=== PATIENT | female | born 1945 | race Caucasian/White ===

== ENCOUNTER → 2017-10-10 10:24 | Outpatient (CLI) | payer MEDICARE, OTHER, SELFPAY ==
--- NOTE | 2017-10-10 10:24 | DT_ITS ---
This patient was seen during an EMR downtime October 03, 2017 - October 10, 2017. This patient may have a combination of paper and electronic documentation or all paper documentation. All documentation is viewable within the e-chart portion of [facility] for each patient visit.
--- NOTE | 2017-10-10 10:26 | BI_ITS ---
MAMMOGRAPHY - BILATERAL SCREENING REASON FOR EXAM: Female, 72 years old. Routine annual screening examination. PERTINENT HISTORY: Aunt with breast cancer. TECHNIQUE: Digital bilateral breast liza (3D mammographic acquisition) in the CC and MLO projections. 2-D mediolateral oblique (MLO) and craniocaudad (CC) views of both breasts were obtained. CAD: Full Field Digital Mammography with Computer Added Detection was performed. COMPARISON: Comparison is made with prior study dated October 06, 2016 and October 06, 2015. FINDINGS: Breast Composition: The breasts are almost entirely fatty. There are no dominant masses or suspicious calcifications. Stable small benign-appearing bilateral axillary lymph nodes. No other significant abnormalities are identified. There has been no significant change since the prior study. BI/SCREENING MAMM (CAD), BILAT IMPRESSION: Stable bilateral screening mammogram. Yearly follow-up mammogram recommended. (A) ASSESSMENT CATEGORY: BIRADS Category 2: Benign. A letter regarding these results will be sent to the patient by the facility within 30 days. Approximately 10% of breast cancers are not detected by mammography. A normal mammogram should not delay biopsy of a clinically suspicious abnormality. [id number] Electronically Signed: Isauro De La Rosa MD at 14:00 EDT Tel [phone], Service support ,
== END ==
PROVIDERS: Family Provider Family Medicine; PCP Family Medicine; Visit Provider Obstetrics & Gynecology
DX: Z12.31 Encounter for screening mammogram for malignant neoplasm of breast (principal)
CPT/HCPCS: 77063; 77067

== ENCOUNTER → 2018-10-13 11:53 | Outpatient (CLI) | payer MEDICARE, OTHER, SELFPAY ==
--- NOTE | 2018-10-13 11:57 | BI_ITS ---
MAMMOGRAPHY - BILATERAL SCREENING REASON FOR EXAM: Female, 73 years old. Routine annual screening examination. PERTINENT HISTORY: Aunt with breast cancer. TECHNIQUE: Digital bilateral breast aries (3D mammographic acquisition) in the CC and MLO projections. 2-D mediolateral oblique (MLO) and craniocaudad (CC) views of both breasts were obtained. CAD: Full Field Digital Mammography with Computer Added Detection was performed. COMPARISON: Comparison is made with prior study dated October 10, 2017 and October 06, 2016. FINDINGS: Breast Composition: The breasts are almost entirely fatty. There are no dominant masses or suspicious calcifications. Stable small bilateral benign-appearing axillary lymph nodes. No other significant abnormalities are identified. There has been no significant change since the prior study. BI/SCREEN MAMM (CAD) W/ARIES BILAT IMPRESSION: Stable bilateral screening mammogram. Yearly follow-up mammogram recommended. (A) ASSESSMENT CATEGORY: BIRADS Category 2: Benign. A letter regarding these results will be sent to the patient by the facility within 30 days. Approximately 10% of breast cancers are not detected by mammography. A normal mammogram should not delay biopsy of a clinically suspicious abnormality. [id number] Electronically Signed: Isauro De La Rosa, at 13:24 EDT , Service support ,
== END ==
PROVIDERS: Family Provider Family Medicine; PCP Family Medicine; Referring Provider Obstetrics & Gynecology; Visit Provider Obstetrics & Gynecology
DX: Z12.31 Encounter for screening mammogram for malignant neoplasm of breast (principal)
CPT/HCPCS: 77063; 77067

== ENCOUNTER → 2019-10-15 10:30 | Outpatient (CLI) | payer MEDICARE, OTHER, SELFPAY ==
--- NOTE | 2019-10-15 10:35 | BI_ITS ---
MAMMOGRAPHY - BILATERAL SCREENING REASON FOR EXAM: Female, 74 years old. Routine annual screening examination. PERTINENT HISTORY: Aunt with breast cancer. TECHNIQUE: Digital bilateral breast aries (3D mammographic acquisition) in the CC and MLO projections. 2-D mediolateral oblique (MLO) and craniocaudad (CC) views of both breasts were obtained. CAD: Full Field Digital Mammography with Computer Added Detection was performed. COMPARISON: Comparison is made with prior examination dated October 13, 2018 and October 10, 2017. FINDINGS: Breast Composition: The breasts are almost entirely fatty. There are no dominant masses or suspicious calcifications. Stable benign-appearing small bilateral axillary lymph nodes. No other significant abnormalities are identified. There has been no significant change since the prior study. BI/SCREEN MAMM (CAD) W/ARIES BILAT IMPRESSION: Stable bilateral screening mammogram. Yearly follow-up mammogram recommended. (A) ASSESSMENT CATEGORY: BIRADS Category 2: Benign. A letter regarding these results will be sent to the patient by the facility within 30 days. Approximately 10% of breast cancers are not detected by mammography. A normal mammogram should not delay biopsy of a clinically suspicious abnormality. [id number] Electronically Signed: Isauro De La Rosa, at 12:25 EDT , Service support ,
== END ==
PROVIDERS: PCP Family Medicine; Referring Provider Obstetrics & Gynecology; Visit Provider Obstetrics & Gynecology
DX: Z12.31 Encounter for screening mammogram for malignant neoplasm of breast (principal); Z80.3 Family history of malignant neoplasm of breast
CPT/HCPCS: 77063; 77067

== ENCOUNTER → 2020-10-21 10:07 | Outpatient (CLI) | payer MEDICARE, OTHER, SELFPAY ==
--- NOTE | 2020-10-21 10:10 | BI_ITS ---
MAMMOGRAPHY - BILATERAL SCREENING 3-D TOMOSYNTHESIS REASON FOR EXAM: Female, 75 years old. SCREENING PERTINENT HISTORY: No significant family history. TECHNIQUE: 2-D mammograms and 3-D Tomosynthesis of the breast (s) were performed. CAD was performed. COMPARISON: 10/15/2019. FINDINGS: The breast composition is of scattered fibroglandular tissue. Scattered benign calcifications are seen particularly in the right breast. No dense spiculated masses or suspicious microcalcifications are identified. No architectural distortion is identified. There is no skin thickening or retraction. Tiny intrapulmonary lymph node seen in both breasts There has been no significant change since the prior study of 10/15/2019. BI/SCRN MAMM (CAD)W/ARIES BILAT IMPRESSION: No mammographic signs of malignancy. Routine yearly mammograms recommended. ASSESSMENT CATEGORY: BIRADS Category 1: Negative. A letter regarding these results will be sent to the patient by the facility within 30 days. FOLLOW UP RECOMMENDATION: Yearly follow up mammogram recommended. (A) Approximately 10% of breast cancers are not detected by mammography. A normal mammogram should not delay biopsy of a clinically suspicious abnormality. Electronically Signed: Ankita Camarena, at 13:43 EDT Tel , Service support ,
== END ==
PROVIDERS: PCP Nurse Practitioner Family; Referring Provider Student in an Organized Health Care Education/Training Program; Visit Provider Student in an Organized Health Care Education/Training Program
DX: Z12.31 Encounter for screening mammogram for malignant neoplasm of breast (principal)
CPT/HCPCS: 77063; 77067

== ENCOUNTER → 2022-01-13 | Outpatient (CLI) | payer MEDICARE, OTHER, SELFPAY ==
--- NOTE | 2022-01-13 11:26 | BI_ITS ---
MAMMOGRAPHY - BILATERAL SCREENING REASON FOR EXAM: Female, 76 years old. Routine annual screening examination. PERTINENT HISTORY: Aunt with breast cancer. TECHNIQUE: Digital bilateral breast aries (3D mammographic acquisition) in the CC and MLO projections. 2-D mediolateral oblique (MLO) and craniocaudad (CC) views of both breasts were obtained. CAD: Full Field Digital Mammography with Computer Added Detection was performed. COMPARISON: Comparison is made with prior study dated 10/21/2020 and 10/15/2019. FINDINGS: Breast Composition: There are scattered areas of fibroglandular density. There are no dominant masses or suspicious calcifications. Stable small benign-appearing bilateral axillary lymph nodes. No other significant abnormalities are identified. There has been no significant change since the prior study. BI/SCRN MAMM (CAD)W/ARIES BILAT IMPRESSION: Stable bilateral screening mammogram. Yearly follow-up mammogram recommended. (A) ASSESSMENT CATEGORY: BIRADS Category 2: Benign. A letter regarding these results will be sent to the patient by the facility within 30 days. Approximately 10% of breast cancers are not detected by mammography. A normal mammogram should not delay biopsy of a clinically suspicious abnormality. [id number] Electronically Signed: Isauro De La Rosa MD at 12:21 EDT ,
--- NOTE | 2022-01-13 11:32 | BD_ITS ---
STUDY: DUAL ENERGY X-RAY ABSORPTIOMETRY / DXA REASON FOR EXAM: Female, 76 years old. V76.12ScreeningBONE DENSITY REASON FOR EXAM TECHNIQUE: Bone Mineral Density (BMD) measurements of lumbar spine and right hip were obtained. COMPARISON: Comparison is made with prior study dated 09/19/2012. FINDINGS: Lumbar Spine (L1-L4): g/cm2 (1.123) / T-score (0.7) / Z-score (3.2) Findings are suggestive of normal bone density with a low fracture risk. Right Femur Total: g/cm2 (0.782) / T-score (-1.3) / Z-score (0.6) Right Femoral Neck: g/cm2 (0.656) / T-score (-1.7) / Z-score (0.4) The T-Scores on the most recent prior examination were: Lumbar Spine (L1-L4): There has been improvement of bone density since the previous examination. Right Femur Total: which represents a worsening of 16.7%. BD/Dexa Bone Density Study IMPRESSION: The patient is considered osteopenic as outlined below according to World Bam Organization (WHO) criteria with a moderate fracture risk. There has been worsening of bone density since the previous examination. Reference Information: The T-score is the number of standard deviations above or below the standard which is normal for young adults at their peak bone mineral density. The World Health Organization (WHO) interprets the T-scores as follows: Above -1 Normal bone density Between -1 and -2.5 Osteopenia Equal to / or below -2.5 Osteoporosis As a practical clinical guideline, osteopenia may be graded as follows: Mild -1 through -1.5 Moderate -1.6 through -2.0 Severe -2.1 through -2.4 The Z-score is the number of standard deviations above or below age-matched controls. A Z-score of less than -1.5 would be considered abnormal. References: 1. NIH Osteoporosis and Related Bone Diseases www osteo.org 2. International Society for Clinical Densitometry www iscd.org 3. National Osteoporosis Foundation www nof.org Electronically Signed: Isauro De La Rosa MD at 13:42 EDT ,
== END | disposition home or self-care (01) ==
LOC: OPBD 11:23
PROVIDERS: PCP Internal Medicine; Referring Provider Student in an Organized Health Care Education/Training Program; Visit Provider Student in an Organized Health Care Education/Training Program
DX: Z13.820 Encounter for screening for osteoporosis (principal); Z78.0 Asymptomatic menopausal state; Z12.31 Encounter for screening mammogram for malignant neoplasm of breast; Z80.3 Family history of malignant neoplasm of breast
CPT/HCPCS: 77063; 77067; 77080

== ENCOUNTER → 2024-02-02 | Outpatient (CLI) | payer MEDICARE, OTHER, SELFPAY ==
--- NOTE | 2024-02-02 13:30 | BI_ITS ---
MAMMOGRAPHY - BILATERAL SCREENING 3-D TOMOSYNTHESIS REASON FOR EXAM: Female, 78 years old. SCREENING PERTINENT HISTORY: No significant family history. TECHNIQUE: 2-D mammograms and 3-D Tomosynthesis of the breast (s) were performed. CAD was performed. COMPARISON: 01/13/2022 FINDINGS: The breast composition is composed of scattered fibroglandular density. Scattered benign calcifications are seen. No dense spiculated masses or suspicious microcalcifications are identified. No architectural distortion is identified. There is no skin thickening or retraction. There has been no significant change since the prior study. BI/SCRN MAMM (CAD)W/ARIES BILAT IMPRESSION: No mammographic signs of malignancy. Routine yearly mammograms recommended. ASSESSMENT CATEGORY: BIRADS Category 1: Negative. A letter regarding these results will be sent to the patient by the facility within 30 days. FOLLOW UP RECOMMENDATION: Yearly follow up mammogram recommended. (A) Approximately 10% of breast cancers are not detected by mammography. A normal mammogram should not delay biopsy of a clinically suspicious abnormality. Electronically Signed: Bob Garsia MD at 13:51 EDT ,
== END | disposition home or self-care (01) ==
LOC: OPBI 13:27
PROVIDERS: PCP Internal Medicine; Referring Provider Clinical Nurse Specialist; Visit Provider Clinical Nurse Specialist
DX: Z12.31 Encounter for screening mammogram for malignant neoplasm of breast (principal)
CPT/HCPCS: 77063; 77067

== ENCOUNTER 2024-12-03 16:30 | Emergency (ER) | payer MEDICARE, OTHER, SELFPAY ==
[2024-12-03 16:33] VITALS: BP 147/57; PULSE 71; RESP 16; TEMP 36.7; O2SAT 97
[2024-12-03 17:17] VITALS: BMI 30.4
--- NOTE | 2024-12-03 17:32 | CT_ITS ---
EXAM: CT BRAIN/HEAD WITHOUT CONTRAST; CT SPINE CERVICAL WITHOUT CONTRAST CLINICAL HISTORY: INJURY/PAIN COMPARISON: None. TECHNIQUE: Noncontrast CT images of the head and cervical spine with multiplanar reconstructions. Dose reduction techniques were used including intermediate exposure control (AEC),iterative reconstruction technique, and/or mA and/or KV dose adjustments based on patient's size. FINDINGS: HEAD: No acute intracranial hemorrhage, extra-axial collection, mass effect or evidence of acute infarct. Mild age-appropriate generalized brain parenchymal volume loss and chronic microangiopathic changes. Absent [place] ocular lenses. Mild posterior right parietal scalp contusion/hematoma with laceration and small amount of scattered subcutaneous gas. No acute skull base or calvarial fracture. Well-aerated visualized paranasal sinuses and bilateral mastoid air cells. CERVICAL SPINE: No acute fracture or subluxation. Positional and/or degenerative straightening of the cervical lordosis. Slight grade 1 degenerative anterolisthesis of C4 on C5. Multilevel spondylotic changes with varying degrees of disc space narrowing, endplate sclerosis with multiple small degenerative Schmorl's nodes and/or subchondral cysts, anterior osteophytosis, uncovertebral spurring and hypertrophic facet arthropathy. No prevertebral soft tissue swelling/edema. Atherosclerotic vascular calcifications. Retropharyngeal course of bilateral carotid arteries noted. Sternotomy wires. Clear lung apices. Heterogeneous hypodense nodular lesion mildly expanding the left lobe of the thyroid gland. CT/Spine Cervical without Contras IMPRESSION: 1. No acute intracranial abnormality. 2. Mild right parietal scalp contusion/hematoma and laceration. No calvarial fr acture. 3. No acute cervical spine fracture or traumatic malalignment. Degenerative yadiel nges as above. 4. Hypodense nodular lesion within the left thyroid gland; may be further asses sed with ultrasound. Reading Location: [id number]
--- NOTE | 2024-12-03 17:45 | RAD_ITS ---
PROCEDURE: PELVIS 1 OR 2 VIEWS 12/03/2024 REASON FOR EXAM: INJURY/PAIN TECHNIQUE: PELVIS 1 OR 2 VIEWS COMPARISON: None. FINDINGS: No evidence of acute fracture or dislocation. Partially imaged left hip arthroplasty, with intact hardware. Mild degenerative arthrosis of the right hip joint. Degenerative changes of the lower lumbosacral spine. Qualitative osteopenia. Atherosclerotic vascular calcifications. RAD/Pelvis 1 or 2 Views IMPRESSION: No evidence of acute fracture or dislocation. Partially imaged left hip arthroplasty appears intact. Reading Location: [id number]
[2024-12-03] MEDS: Lidocaine 1% (20 ml mdv) 20 ML Vial INFILT (17:52)
--- NOTE | 2024-12-03 18:16 | EX.ED.GENINJ ---
HPI History of Present Illness Chief Complaint: Fall Detail of Chief Complaint: Fell backwards due to mechanical fall Informant: patient Onset/Context/Timing Onset: Today and Hours Mechanism/Context: Fall Location of pain/injuries: - (Occiput and left ischial tuberosity) Quality of Pain: Dull and Aching Location: Back of head and pelvis Current Severity: Mild Maximum Severity: Moderate Worsened by: Palpation Relieved by: Rest Associated Symptoms Associated Symptoms: Positive for - (Patient complains of headache and nausea.); Negative for Parasthesias, Weakness, Loss of function, Inability to ambulate or Loss of consciousness Length of loss of consciousness: Denies Narrative Narrative: Patient is an 79-year-old woman. She is on a baby aspirin. She is on no other antithrombotic and no anticoagulant. She was walking her dog. She apparently forgot there was a small fence behind her. She tripped on the fence falling backwards onto concrete. She had buttocks first then her head. She complains of headache and nausea. She denies double vision blurred vision loss of vision. Has regular [place] decreased hearing. No trouble speech or swallowing. She does complain of neck pain with movement. She denies chest pain or shortness of breath. She denies abdominal pain. She denies low back pain. She denies pain of her upper or lower extremities. She denies paresthesia, anesthesia or weakness of her upper or lower extremities. She denies trouble with her balance. Tetanus Immunization: Unknown Prior similar symptoms: No Recent Illness/Hospitalization: No PFSH PFS Medical History High cholesterol Hx of carpal tunnel syndrome Home Medications ?Medication ?Instructions ?Recorded ?Last Taken ?Type aspirin 81 mg tablet,delayed 81 mg PO DAILY 03/01/16 03/01/16 History release (Adult Low Dose Aspirin) atorvastatin 40 mg tablet 40 mg PO QHS 03/01/16 02/29/16 History calcium 600 mg (as 1 tab PO DAILY 03/01/16 03/01/16 History carbonate)-vitamin D3 5 mcg (200 unit) tablet (Calcium 600 + D(3)) furosemide 40 mg tablet 40 mg PO BIDLX 03/01/16 03/01/16 History hydroxyzine HCl 25 mg tablet 25 mg PO Q6H PRN PRN Itching 03/01/16 Unknown History losartan 50 mg tablet 50 mg PO DAILY 03/01/16 03/01/16 History metoprolol tartrate 25 mg tablet 25 mg PO BID 03/01/16 03/01/16 History potassium chloride 20 mEq 20 meq PO DAILY 03/01/16 03/01/16 History tablet,extended release(part/cryst) (Klor-Con M) acetaminophen 325 mg tablet 650 mg (2 x 325 mg) PO Q6H PRN PRN 03/02/16 Unknown Rx (Tylenol) Mild Pain (scale 0-3)/T>100.7 ##0 levofloxacin 500 mg tablet 500 mg PO DAILY@1800 ##7 03/02/16 Unknown Rx allopurinol 300 mg tablet 300 mg PO DAILY 12/03/24 Unknown History amlodipine 5 mg tablet 5 mg PO DAILY 12/03/24 Unknown History Allergy/AdvReac Type Severity Reaction Status Date / Time adhesive Allergy Other Verified 12/03/24 16:37 Penicillins Allergy Hives Verified 12/03/24 16:37 lisinopril AdvReac Other Verified 12/03/24 16:37 Family History no significant family his Surgical History History of hip replacement H/O: hysterectomy Social History (Updated 12/03/24 @ 18:[address] Drew Emmanuel MD) household members: none Smoking Status: Never smoker ROS ROS ED Constitutional Constitutional ED: Denies chills or fever(s) Eyes Eyes: Denies blurry vision or change in vision ENT ENT ED: Denies ear pain, rhinorrhea or sore throat Cardiovascular Cardiovascular: Denies chest pain or palpitations Respiratory/Chest Respiratory/Chest: Denies cough, dyspnea or dyspnea on exertion Gastrointestinal Gastrointestinal: Reports nausea; Denies abdominal pain or vomiting Genitourinary Genitourinary ED: Denies hematuria Musculoskeletal Musculoskeletal: Reports neck pain; Denies arthralgias, back pain or myalgias Integumentary Reports other Details: Scalp laceration 1 cm ; Denies abscess, Abrasions or rash Neurologic Neurologic: Reports headache(s); Denies paresthesias or weakness Psychiatric Psychiatric: Denies anxiety or depression Endocrine Endocrinology: Denies cold intolerance or heat intolerance Hematologic/Lymphatic Hematologic/Lymphatic: Denies easy bleeding or easy bruising EXAM Physical Exam Const Vital Signs: 12/03/24 16:33 12/03/24 17:17 Temperature 98.1 F Temperature Source Oral Pulse Rate 71 Respiratory Rate 16 Respiratory Effort Normal Respiratory Depth Normal Respiratory Pattern Normal Blood Pressure 147/57 H Blood Pressure Mean 87 Pulse Ox 97 Oxygen Delivery Method Room Air Room Air Positive well nourished and well developed General Appearance ED: well developed and NAD HEENT HEENT Narrative: Tenderness over the occiput. There is no palp depression. There is no clinical finding of basal skull fracture. There is no septal deviation hematoma. There is no TMJ tenderness. There is no evidence of malocclusion. There is no dental trauma trauma and tenderness Eyes PERRL and EOMs intact bilaterally General Eye ED: Yes other Other Details: There is no nystagmus. There is no subconjunctival hemorrhage noted right or left. Neck Neck Narrative: There is pain to outpatient posterior midline cervical spine 345. General: tenderness Chest Wall inspection of chest normal and palpation of chest normal Resp normal respiratory effort and clear to auscultation bilaterally Cardio regular rhythm, S1 normal heart sound, S2 normal heart sound and no murmurs Rate: regular rate GI normal to inspection, nondistended, normoactive bowel sounds, non-tender, non-distended and no masses Back/Spine normal to inspection and no thoracic nor lumbar tenderness Extremity normal to inspection Extremity Narrative: There is pain the patient over the left ischial tuberosity. There is no pain the patient over the right ischial tuberosity. There is no pain the patient over the pubic symphysis or the right or left ilium. Neuro oriented x3, CN's II-XII intact bilaterally and moves all extremities [place] Coma Scale: document GCS findings Spontaneous Obeys Commands Oriented 15 Sensorium / Orientation: alert Deep Tendon Reflexes: Rt Triceps (C7): 1+, Lt Triceps (C7): 1+, Rt Biceps (C5, C6): 1+, Lt Biceps (C5, C6): 1+, Rt Brachioradialis (C6): 1+, Lt Brachioradialis (C6): 1+, Rt Patellar (L4): 1+, Lt Patellar (L4): 1+, Rt Ankle (S1): 1+ and Lt Ankle (S1): 1+ Deep Tendon Reflexes Back: Rt Patellar (L4): 1+, Lt Patellar (L4): 1+, Rt Ankle (S1): 1+ and Lt Ankle (S1): 1+ Plantar Reflex: Downgoing: bilateral (There is no clonus at the ankles.) Psych mental status grossly normal and thought process normal Skin no rashes or lesions noted, No no wounds, skin turgor normal and no jaundice MDM MDM MDM Narrative Medical decision making narrative: CT of the head was obtained to rule out subdural hematoma, epidural hematoma, traumatic subarachnoid hemorrhage or intraparenchymal contusion. Because of the midline cervical spine patient cannot be cleared by [facility] criteria. C-spine films were obtained. X-ray of the pelvis was obtained because of the pain to palpation over the left ischial tuberosity. Patient has a scalp laceration. Will clean and staple. Patient's scalp was cleansed using surgical lines. Since it is a small wound and may only need 1 devyn explained to her that probably be more pained anesthetizing her versus placing 1 staple. She end up requiring 2 devyn. She tolerated procedure without difficulty. Of note there was a study at [facility] about 15 to 20 years ago and stated for small lacerations there was no difference with respect to pain stapling without lidocaine. Radiography Chest X-Ray - ED: 1 View (Total left hip arthroplasty noted. There is no evidence of pelvic fracture. SI joint is normal. Right femur it reveals some degenerative changes.) Diagnostic Testing: Clinical Impression(s) from Imaging Studies Brain CT 12/03/24 17:32 IMPRESSION: 1. No acute intracranial abnormality. 2. Mild right parietal scalp contusion/hematoma and laceration. No calvarial fracture. 3. No acute cervical spine fracture or traumatic malalignment. Degenerative changes as above. 4. Hypodense nodular lesion within the left thyroid gland; may be further assessed with ultrasound. Reading Location: [facility] Cervical Spine CT 12/03/24 17:32 IMPRESSION: 1. No acute intracranial abnormality. 2. Mild right parietal scalp contusion/hematoma and laceration. No calvarial fracture. 3. No acute cervical spine fracture or traumatic malalignment. Degenerative changes as above. 4. Hypodense nodular lesion within the left thyroid gland; may be further assessed with ultrasound. Reading Location: [facility] Pelvis X-Ray 12/03/24 17:45 IMPRESSION: No evidence of acute fracture or dislocation. Partially imaged left hip arthroplasty appears intact. Reading Location: [facility] Discharge Plan Triage Chief Complaint: Fall ED Provider: Drew Emmanuel Dx/Rx/DC Orders Clinical Impression: Concussion without loss of consciousness, Acute cervical myofascial strain, Contusion of pelvic region, Injury due to fall, Laceration of occipital region of scalp without complication Instructions: ED Concussion, ED Laceration Scalp Stitches or [place], ED Neck Sprain or Strain Prescriptions: No Action losartan 50 MG tablet 50 mg PO DAILY Patient Comments: HEART, BLOOD PRESSURE furosemide 40 MG tablet 40 mg PO BIDLX Patient Comments: WATER PILL atorvastatin 40 MG tablet 40 mg PO QHS Patient Comments: COLESTEROL calcium carbonate-vitamin D3 [Calcium 600 + D(3)] 1 EACH tablet 1 tab PO DAILY Patient Comments: SUPPLEMENT aspirin [Adult Low Dose Aspirin] 81 MG tablet,delayed release (DR/EC) 81 mg PO DAILY Patient Comments: HEART HEALTH hydroxyzine HCl 25 MG tablet 25 mg PO Q6H PRN PRN (Reason: Itching) Patient Comments: itching metoprolol tartrate 25 MG tablet 25 mg PO BID Patient Comments: BLOOD PRESSURE potassium chloride [Klor-Con M20] 20 MEQ tablet 20 meq PO DAILY Patient Comments: SUPPLEMENT acetaminophen [Tylenol] 325 MG tablet 650 mg PO Q6H PRN PRN (Reason: Mild Pain (scale 0-3)/T>100.7) Qty: 0 0RF Patient Comments: pain levofloxacin 500 MG tablet 500 mg PO DAILY@1800 Qty: 7 0RF Patient Comments: antibiotic amlodipine 5 mg tablet 5 mg PO DAILY allopurinol 300 mg tablet 300 mg PO DAILY Primary Care Provider: Ally Sterling Referrals: Ally Sterling MD [Primary Care Provider] - 10 Day for suture removal Activity Restrictions/Additional Instructions: 1. You may feel worse over the next 24 to 48 hours. 2. You may hurt in more places you presently do. 3. Apply ice to areas of discomfort for 3 to 5 days. Use of heating pad will make your pain worse. Print Language: Faroese Disposition Disposition: Home, Self Care
[2024-12-03 18:26] VITALS: BP 136/53; PULSE 64; RESP 16; TEMP 36.8; O2SAT 97
== END 2024-12-03 18:42 | disposition home or self-care (01) ==
PROVIDERS: Emergency Provider Emergency Medicine; PCP Internal Medicine; Visit Provider Emergency Medicine
DX: S06.0X0A Concussion without loss of consciousness, initial encounter (principal); S01.01XA Laceration without foreign body of scalp, initial encounter; S16.1XXA Strain of muscle, fascia and tendon at neck level, initial encounter; S30.0XXA Contusion of lower back and pelvis, initial encounter; W01.0XXA Fall on same level from slipping, tripping and stumbling without subsequent striking against object, initial encounter; Y93.K1 Activity, walking an animal; Z23 Encounter for immunization
CPT/HCPCS: 12001; 70450; 72125; 72170; 90715; 99285

== ENCOUNTER → 2025-02-05 | Outpatient (CLI) | payer MEDICARE, OTHER, SELFPAY ==
--- NOTE | 2025-02-05 08:48 | BI_ITS ---
EXAM: SCRN MAMM (CAD)W/ARIES BILAT DATE: 02/05/2025 CLINICAL HISTORY: F, Age 79 y/o , SCREENING No family history. TECHNIQUE: Procedure Code: [id number] Modality: MG Procedure: SCRN MAMM (CAD)W/ARIES BILAT COMPARISON: Prior exam(s) dated February 16, 2024.. FINDINGS: TISSUE DENSITY: There are scattered areas of fibroglandular density. Bilateral Breast Mammographic Findings: No significant masses, calcifications or other abnormalities are identified. Stable small bilateral axillary lymph nodes. No suspicious masses, areas of developing architectural distortion, or suspicious calcifications. There has been no significant interval change. BI/SCRN MAMM (CAD)W/ARIES BILAT IMPRESSION: Stable bilateral screening mammogram. OVERALL FINAL ASSESSMENT BI-RADS 2: BENIGN RECOMMENDATION: Routine annual follow-up in 1 Year Additional Recommendation none A letter with findings and recommendations will be mailed to the patient. Reading Location: [facility]
== END | disposition home or self-care (01) ==
LOC: OPBI 08:47
PROVIDERS: PCP Internal Medicine; Referring Provider Clinical Nurse Specialist; Visit Provider Clinical Nurse Specialist
DX: Z12.31 Encounter for screening mammogram for malignant neoplasm of breast (principal)
CPT/HCPCS: 77063; 77067